=== PATIENT | female | born 1950 | race Caucasian/White ===

== ENCOUNTER → 2016-09-14 19:55 | Outpatient (CLI) | payer MEDICARE, OTHER ==
[2015-09-17 12:13] VITALS: BMI 20.9
[~2016-09-14 19:55] MED LIST: ELIQUIS5 MG PO; MELOXICAM TAB 15M; RYTHMOL150 MG PO; VITAMIN D31000 UNIT PO
== END | disposition home or self-care (01) ==
LOC: D.MAMMO 16:00
DX: Z12.31 Encounter for screening mammogram for malignant neoplasm of breast (principal)

== ENCOUNTER → 2019-01-03 14:00 | Outpatient (CLI) | payer MEDICARE, OTHER ==
[2015-09-17 12:13] VITALS: BMI 20.9
== END | disposition home or self-care (01) ==
LOC: D.MAMMO 14:00
PROVIDERS: ATTEND Family Medicine
DX: Z12.31 Encounter for screening mammogram for malignant neoplasm of breast (principal)

== ENCOUNTER → 2019-05-20 13:00 | Outpatient (CLI) | payer MEDICARE, OTHER ==
[2015-09-17 12:13] VITALS: BMI 20.9
--- NOTE | ~2019-05-20 | EC ---
PATIENT:AVANI COATES DATE OF SERVICE: 05/20/19 SEX: F MEDICAL RECORD: [id number] DATE OF : 50 LOCATION:[facility] AGE OF PATIENT: 69 ADMISSION DATE: 05/20/19 REFERRING PHYSICIAN: INTERPRETING PHYSICIAN: JEFFERY IYER MD ECHOCARDIOGRAM REPORT ECHO CHARGES 4 ECHO COMPLETE Date: 05/20/19 CLINICAL DIAGNOSIS: MR H/O A-FIB ECHOCARDIOGRAPHIC MEASUREMENTS (adult normal given) AC root (d.<3.7cm) 2.8 cm LV Septum d (<1.2 cm> 1.3 cm Valve Excursion 1.8 cm LV Septum (systole) 1.7 cm Left Atria (s.<4.0cm> 3.8 cm LVPW d(<1.2cm) 1.1 cm RV (d.<2.3cm) 2.7 cm LVPW (sytole) 1.7 cm LV diastole(<5.6CM) 5.2 cm MV E-F(>70mm/sec) cm LV systole 3.0 cm LVOT Diameter 2.1 cm MV exc.(>10mm) cm Est.ejection fraction (50-75%) % DOPPLER: LVIT cm/sec A 91.0 cm/sec E 72.0 cm/sec LA cm/sec RVSP 35.4 mmHg LVOT 111 cm/sec AOP1/2T m/s Asc. Ao 176 cm/sec RVOT 54.0 cm/sec RA cm/sec PA 76.0 cm/sec AV Gradient Peak 12.3 mmHg AV Mean 6.3 mmHg AV Area 1.9 cm MV Gradient Peak 3.2 mmHg MV Mean 1.4 mmHg MV Area cm COMMENTS: OP - HC Pulmonary Disease Specialist: 1 RADHA JEZ Principal Database Developer: 1 Dr. Iyer TAPE# PACS Pericardial Effusion N DATE OF SERVICE: 05/20/2019 FINDINGS: 1. Left ventricular chamber size is within normal limits. Left ventricular systolic function is normal. Overall ejection fraction estimated at 55%. 2. Left atrium is within normal limits at 3.8 cm. Right atrium and right ventricle chamber sizes are mildly dilated. 3. Valvular structures have normal structure and motion. 4. Doppler interrogation reveals moderate mitral regurgitation, mild tricuspid regurgitation, no other valvular insufficiency or stenosis. Pulmonary systolic ECHOCARDIOGRAM REPORT [id number] AVANI COATES pressure estimated at 35 mmHg. 5. No evidence of pericardial effusion or left ventricular thrombus. TRANSINT:[id number] Voice Confirmation ID: [id number] DOCUMENT ID: [id number] JEFFERY IYER MD CC: [id number] DICTATION DATE: 05/20/19 1637 TECHNOLOGY CONSULTANT: 05/20/19 2318 [facility] [address] [id number]
== END | disposition home or self-care (01) ==
LOC: D.HCCECHO 13:00
PROVIDERS: ATTEND Internal Medicine Interventional Cardiology
DX: I34.0 Nonrheumatic mitral (valve) insufficiency (principal)

== ENCOUNTER 2019-07-03 17:10 | Emergency (ER) | payer MEDICARE, OTHER ==
[~2019-07-03] VITALS: Ht 180.3 cm; Wt 63.6 kg
[2019-07-03 17:15] VITALS: Ht 180.3 cm; Wt 63.6 kg
[2019-07-03] MEDS ORDERED: MERIBIN5 MG PO (17:18)
[2019-07-03 21:13] VITALS: BP 115/64
== END 2019-07-03 21:13 | disposition home or self-care (01) ==
LOC: D.ER 17:10
DX: E86.0 Dehydration (principal); R50.9 Fever, unspecified; I48.91 Unspecified atrial fibrillation; R55 Syncope and collapse; R11.2 Nausea with vomiting, unspecified

== ENCOUNTER → 2020-10-28 23:27 | Outpatient (CLI) | payer MEDICARE, OTHER ==
[2019-07-03 17:15] VITALS: BMI 19.5
[~2020-10-28 23:27] MED LIST changes: +MERIBIN5 MG PO
== END | disposition home or self-care (01) ==
LOC: D.MAMMO 15:45
PROVIDERS: ATTEND Family Medicine
DX: Z12.31 Encounter for screening mammogram for malignant neoplasm of breast (principal)